=== PATIENT | male | born 1955 | race Caucasian/White ===

== ENCOUNTER → 2019-07-13 07:35 | Outpatient (CLI) | payer BC | END | disposition home or self-care (01) | LOC: D.MRI 07:35 | PROVIDERS: ATTEND Psychiatry & Neurology Neurology | DX: G35 Multiple sclerosis (principal); E55.9 Vitamin D deficiency, unspecified ==

== ENCOUNTER → 2020-10-17 07:08 | Outpatient (CLI) | payer BC | END | disposition home or self-care (01) | LOC: D.MRI 07:08 | PROVIDERS: ATTEND Nurse Practitioner Acute Care | DX: G35 Multiple sclerosis (principal) ==